=== PATIENT | female | born 1955 | race African-American/Black ===

== ENCOUNTER 2023-07-02 06:55 | Inpatient (IN) | payer OTHER ==
[~2023-07-02] VITALS: Ht 162.6 cm; Wt 64.9 kg
[2023-07-02] VITALS (25 sets, daily range): BP systolic 79–125; BP diastolic 52–84; PULSE 73–89; RESP 9–23; TEMP 98.1–98.3
[2023-07-02 07:48] LABS: HEMATOCRIT. 31.1 % (36.0-48.0); HEMOGLOBIN. 10.2 g/dL (12.0-16.0); MEAN CORPUSCULAR HEMOGLOBIN 30.6 pg (28.0-32.0); MEAN CORPUSCULAR HGB CONC 32.8 g/dL (31.0-37.0); MEAN CORPUSCULAR VOLUME 93.2 fL (81.0-99.0); PLATELET 236 x1000/uL (130-400); RED BLOOD CELL COUNT 3.34 mill/uL (4.2-5.4); RED CELL DISTRIBUTION WIDTH 14.7 % (11.6-14.6); WHITE BLOOD COUNT 10.6 x1000/uL (4.5-11.0)
[2023-07-02 07:49] LABS: DIFFERENTIAL COMMENT 1
[2023-07-02] MEDS: ASPIRIN 325MG EC TABLET PO ONE (07:50)
[2023-07-02 08:21] LABS: AMMONIA 26 uMol/L (<32)
[2023-07-02 08:29] LABS: CHLORIDE 103 mEq/L (98-107); POTASSIUM 3.9 mEq/L (3.5-5.1); SODIUM 132 mEq/L (136-145)
[2023-07-02 08:30] LABS: CARBON DIOXIDE 20 mEq/L (21-32)
[2023-07-02 08:31] LABS: CALCIUM 8.1 mg/dL (8.7-10.4)
[2023-07-02 08:35] LABS: CREATININE 2.3 mg/dL (0.6-1.0); GLUCOSE 96 mg/dL (70-105)
[2023-07-02 08:36] LABS: ETHANOL BLOOD < 10 mg/dL (<10); UREA NITROGEN BLOOD 42 mg/dL (9-23)
[2023-07-02 08:53] LABS: INR 0.9; PROTHROMBIN TIME 10.4 sec (9.6-11.0)
[2023-07-02] MEDS: SODIUM CHLORIDE 0.9% 1000ML BAG (SEPSIS BOLUS) IV ONE (09:06)
[2023-07-02] MEDS: PIPERACILLIN/TAZO 3.375G/50ML 50 ML IV ONE (09:40)
[2023-07-02 11:07] LABS: ALANINE AMINOTRANSFERASE 15 IU/L (10-49); ASPARTATE AMINOTRANSFERASE 37 IU/L (<34)
[2023-07-02 11:08] LABS: ALBUMIN 3.4 g/dL (3.2-4.8); BILIRUBIN DIRECT < 0.1 mg/dL (<=3.0); BILIRUBIN TOTAL 0.2 mg/dL (0.1-1.0); PROTEIN TOTAL 6.4 g/dL (6.0-8.3)
[2023-07-02 11:53] LABS: PLATELET ESTIMATE NORMAL
[2023-07-02 12:15] LABS: CLARITY URINE TURBID (CLEAR); COLOR URINE ORANGE (YELLOW); GLUCOSE URINE NEGATIVE (NEGATIVE); KETONES URINE NEGATIVE (NEGATIVE); LEUKOCYTE ESTERASE URINE 3+ (NEGATIVE); NITRITE URINE POSITIVE (NEGATIVE); OCCULT BLOOD URINE 3+ (NEGATIVE); PH URINE 8.5 (4.5-8.0); PROTEIN URINE 2+ (NEGATIVE); SPECIFIC GRAVITY URINE 1.026 (1.005-1.030); UROBILINOGEN URINE 0.2 E.U./dL (0.2-1.0)
[2023-07-02] MEDS ORDERED: VANCOMYCIN 1G PREMIX 200 ML IV NR (12:15)
[2023-07-02 12:34] LABS: SQUAMOUS EPITHELIAL CELL URINE FEW /lpf (RARE/1+)
[2023-07-02 12:35] LABS: BACTERIA URINE 4+; RBC URINE 50-100 /hpf (0-2); WBC URINE TNTC /hpf (0-2)
[2023-07-02] MEDS ORDERED: GUAIFENESIN 200MG/10ML SUGAR FREE UDC PO PRN (13:15)
[2023-07-02] MEDS ORDERED: ONDANSETRON HCL 4MG/2ML INJ IV PRN (13:15)
[2023-07-02] MEDS ORDERED: ACETAMINOPHEN 325MG TABLET PO PRN (13:15)
[2023-07-02] MEDS ORDERED: PIPERACILLIN/TAZOBACTAM 3.375 G in DEXTROSE 5% WATER 50 ML IV SCH (13:15)
[2023-07-02] MEDS: NOREPINEPHRINE 8MG/250ML PMX 250 ML IV ONE (13:50)
[2023-07-02] MEDS: SODIUM CHLORIDE 0.9% 500 ML IV ONE (13:51)
[2023-07-02] MEDS: SODIUM CHLORIDE 0.9% 1,000 ML IV SCH (13:51)
[2023-07-02] MEDS: VANCOMYCIN 1.25GM PMX (XELLIA) 250 ML IV NR (15:00)
[2023-07-02] MEDS: ENOXAPARIN 30MG/0.3ML SYR SUBCUT SCH (15:15)
[2023-07-02] MEDS ORDERED: HYDRALAZINE HCL 25MG TABLET PO PRN (19:30)
[2023-07-02] MEDS: ASPIRIN 81MG EC TABLET PO SCH (19:30)
[2023-07-02] MEDS: CLOPIDOGREL 75MG TABLET PO SCH (19:30)
[2023-07-02] MEDS: PIPERACILLIN/TAZO 3.375G/50ML IV SCH (20:25)
[2023-07-02] MEDS: ATORVASTATIN CALCIUM 40MG TABLET PO SCH (20:26)
[2023-07-02] MEDS: TRAMADOL 50MG TABLET PO PRN (20:43)
[2023-07-02 23:04] LABS: HEPATITIS B SURFACE ANTIGEN NEGATIVE (Negative)
[2023-07-02 23:25] LABS: HEPATITIS C AB NON REACTIVE (Neg) (Negative)
[2023-07-03] VITALS (47 sets, daily range): BP systolic 47–145; BP diastolic 26–110; PULSE 69–90; RESP 10–24; TEMP 98–98.6
[2023-07-03 04:48] LABS: BASOPHILS % 0.4 % (0.0-2.0); EOSINOPHILS % 2.1 % (0.0-5.0); HEMATOCRIT. 27.4 % (36.0-48.0); HEMOGLOBIN. 9.3 g/dL (12.0-16.0); LYMPHOCYTES % 14.5 % (20.0-50.0); MEAN CORPUSCULAR HEMOGLOBIN 31.4 pg (28.0-32.0); MEAN CORPUSCULAR HGB CONC 33.8 g/dL (31.0-37.0); MEAN CORPUSCULAR VOLUME 92.9 fL (81.0-99.0); MEAN PLATELET VOLUME 7.1 fl (7.4-10.4); MONOCYTES % 9.2 % (2.0-8.0); NEUTROPHILS % 73.8 % (40.0-76.0); PLATELET 217 x1000/uL (130-400); RED BLOOD CELL COUNT 2.95 mill/uL (4.2-5.4); RED CELL DISTRIBUTION WIDTH 14.6 % (11.6-14.6)
[2023-07-03 05:04] LABS: TRIGLYCERIDE 209 mg/dL (0-150)
[2023-07-03 05:05] LABS: LDL CHOLESTEROL 40 mg/dL (5-100)
[2023-07-03 05:06] LABS: CHOLESTEROL 124 mg/dL (<200); HDL CHOLESTEROL < 20 mg/dL (>65)
[2023-07-03] MEDS ORDERED: NALOXONE HCL 0.4MG/ML VIAL IV PRN (11:00)
[2023-07-03] MEDS: ENOXAPARIN 40MG/0.4ML SYR SUBCUT SCH (11:24)
[2023-07-03 12:33] LABS: POTASSIUM 3.3 mEq/L (3.5-5.1)
[2023-07-03 12:34] LABS: CALCIUM 7.5 mg/dL (8.7-10.4)
[2023-07-03 12:41] LABS: CREATININE 1.5 mg/dL (0.6-1.0)
[2023-07-03] MEDS: PIPERACILLIN/TAZO 3.375G/50ML IV SCH (15:11)
[2023-07-03] MEDS: VANCOMYCIN 750MG/150ML IV NR (17:09)
[2023-07-04] VITALS: BP 143/82; PULSE 85; RESP 18; TEMP 97.9
[2023-07-04 04:00] VITALS: BP 155/89; PULSE 75; RESP 18; TEMP 98.1
[2023-07-04 07:52] LABS: CHLORIDE 112 mEq/L (98-107); SODIUM 141 mEq/L (136-145)
[2023-07-04 07:53] LABS: CALCIUM 8.4 mg/dL (8.7-10.4); CARBON DIOXIDE 18 mEq/L (21-32)
[2023-07-04 07:58] LABS: CREATININE 1.1 mg/dL (0.6-1.0)
[2023-07-04 07:59] LABS: GLUCOSE 87 mg/dL (70-105); UREA NITROGEN BLOOD 18 mg/dL (9-23)
[2023-07-04 08:00] VITALS: BP 162/94; PULSE 67; RESP 18; TEMP 98.8
[2023-07-04] MEDS: POTASSIUM CHLORIDE 20MEQ TABLET SR PO NR (09:44)
[2023-07-04] MEDS: CLONIDINE 0.1MG TABLET PO PRN (09:48)
[2023-07-04] MEDS: VANCOMYCIN 1.5GM/250ML IV SCH (11:49)
[2023-07-04 12:00] VITALS: BP 169/87; PULSE 66; RESP 18; TEMP 98.1
[2023-07-04 16:00] VITALS: BP 164/82; PULSE 62; RESP 18; TEMP 98.7
[2023-07-04 20:00] VITALS: BP 161/81; PULSE 73; RESP 22; TEMP 98.1
[2023-07-05] VITALS: BP 160/83; PULSE 73; RESP 18; TEMP 98.6
[2023-07-05 04:00] VITALS: BP 162/90; PULSE 56; RESP 17; TEMP 97.9
[2023-07-05 07:27] LABS: CARBON DIOXIDE 19 mEq/L (21-32); CHLORIDE 112 mEq/L (98-107); POTASSIUM 3.6 mEq/L (3.5-5.1); SODIUM 140 mEq/L (136-145)
[2023-07-05 07:29] LABS: CALCIUM 8.5 mg/dL (8.7-10.4)
[2023-07-05 07:32] LABS: CREATININE 1.1 mg/dL (0.6-1.0)
[2023-07-05 07:33] LABS: GLUCOSE 97 mg/dL (70-105); UREA NITROGEN BLOOD 12 mg/dL (9-23)
[2023-07-05 08:00] VITALS: BP 118/79; PULSE 60; RESP 20; TEMP 98.1
[2023-07-05 12:00] VITALS: BP 120/86; PULSE 79; RESP 18; TEMP 98.9
[2023-07-05 12:14] VITALS: BP 120/86; PULSE 79; TEMP 98.9; O2SAT 96
== END 2023-07-05 14:10 | disposition home or self-care (01) | DRG 872 ==
LOC: ER 06:55 → EDBEDREQ 12:30 → MICUNO 13:22 → EDBEDREQSVC 13:27 → EDBEDREQTM 13:27 → ER 17:52 → 7WST 07-03 15:15
PROVIDERS: ADMIT Hospitalist; ATTEND Hospitalist
DX: A41.9 Sepsis, unspecified organism (principal); E87.1 Hypo-osmolality and hyponatremia; N17.9 Acute kidney failure, unspecified; N39.0 Urinary tract infection, site not specified; F17.200 Nicotine dependence, unspecified, uncomplicated; D64.9 Anemia, unspecified; I10 Essential (primary) hypertension
CPT/HCPCS: 36415; 70496; 70498; 70551; 71045; 72141; 80048; 80061; 80076; 80202; 80320; 81003; 82140; 82962; 83036; 83605; 83735; 84145; 84443; 85025; 86705; 87340; 93005; 93306; 93970; 97162; 97166; 97530; 97535; 99291; J1650; J2543; J3370; J3490; J7030; J7040; G0480

== ENCOUNTER 2024-01-25 08:34 | Inpatient (IN) | payer OTHER ==
[~2024-01-25] VITALS: Ht 167.6 cm; Wt 77.6 kg
[2024-01-25 09:27] LABS: DIFFERENTIAL COMMENT 1; HEMATOCRIT. 30.3 % (36.0-48.0); HEMOGLOBIN. 9.9 g/dL (12.0-16.0); MEAN CORPUSCULAR HEMOGLOBIN 31.2 pg (28.0-32.0); MEAN CORPUSCULAR HGB CONC 32.7 g/dL (31.0-37.0); MEAN CORPUSCULAR VOLUME 95.3 fL (81.0-99.0); MEAN PLATELET VOLUME 6.8 fl (7.4-10.4); PLATELET 309 x1000/uL (130-400); RED BLOOD CELL COUNT 3.18 mill/uL (4.2-5.4); RED CELL DISTRIBUTION WIDTH 14.3 % (11.6-14.6); WHITE BLOOD COUNT 10.4 x1000/uL (4.5-11.0)
[2024-01-25] MEDS: IOHEXOL-350 100 ML BOTTLE ONE (09:28)
[2024-01-25 09:33] LABS: CHLORIDE 105 mEq/L (98-107); POTASSIUM 3.4 mEq/L (3.5-5.1); SODIUM 134 mEq/L (136-145)
[2024-01-25 09:34] LABS: CARBON DIOXIDE 19 mEq/L (21-32)
[2024-01-25 09:37] LABS: PROTHROMBIN TIME 11.3 sec (9.6-11.0)
[2024-01-25 09:39] LABS: GLUCOSE 94 mg/dL (70-105); TROPONIN I HIGH SENSITIVITY 4 ng/L (3.0-34); UREA NITROGEN BLOOD 21 mg/dL (9-23)
[2024-01-25 09:41] LABS: ALANINE AMINOTRANSFERASE < 7 IU/L (10-49); ALBUMIN 3.2 g/dL (3.2-4.8); ASPARTATE AMINOTRANSFERASE 11 IU/L (<34); BILIRUBIN DIRECT 0.1 mg/dL (<=3.0); BILIRUBIN TOTAL 0.4 mg/dL (0.1-1.0); PROTEIN TOTAL 6.2 g/dL (6.0-8.3)
[2024-01-25] MEDS ORDERED: LACTATED RINGERS 1,000 ML IV SCH (09:45)
[2024-01-25] MEDS: ASPIRIN 81MG TABLET PO ONE (09:46)
[2024-01-25] MEDS: CLOPIDOGREL 75MG TABLET PO ONE (09:47)
[2024-01-25 09:55] LABS: CREATININE 1.9 mg/dL (0.6-1.0)
[2024-01-25 10:02] LABS: PLATELET ESTIMATE NORMAL
[2024-01-25] MEDS ORDERED: ACETAMINOPHEN 325MG TABLET PO PRN (10:45)
[2024-01-25] MEDS ORDERED: IPRATROPIUM/ALBUTEROL 0.5-3(2.5)MG/3ML NEB HHN PRN (10:45)
[2024-01-25] MEDS ORDERED: ONDANSETRON HCL 4MG/2ML INJ IV PRN (10:45)
[2024-01-25] MEDS ORDERED: CLONIDINE 0.1MG TABLET PO PRN (10:45)
[2024-01-25] MEDS: SODIUM CHLORIDE 0.9% 1,000 ML IV SCH (10:53)
[2024-01-25] MEDS: POTASSIUM CHLORIDE 20MEQ TABLET SR PO NR (11:30)
[2024-01-25] MEDS: PANTOPRAZOLE 40MG DR TABLET PO SCH (12:00)
[2024-01-25] MEDS: VANCOMYCIN 1.25GM PMX (XELLIA) 250 ML IV NR (12:00)
[2024-01-25 12:11] LABS: CLARITY URINE CLOUDY (CLEAR); COLOR URINE YELLOW (YELLOW); GLUCOSE URINE NEGATIVE (NEGATIVE); KETONES URINE NEGATIVE (NEGATIVE); NITRITE URINE POSITIVE (NEGATIVE); OCCULT BLOOD URINE 3+ (NEGATIVE); PROTEIN URINE TRACE (NEGATIVE); UROBILINOGEN URINE 0.2 E.U./dL (0.2-1.0)
[2024-01-25 12:12] LABS: LEUKOCYTE ESTERASE URINE 2+ (NEGATIVE)
[2024-01-25 12:14] LABS: BACTERIA URINE 4+; RBC URINE TNTC /hpf (0-2); SQUAMOUS EPITHELIAL CELL URINE 2+ /lpf (RARE/1+); WBC URINE TNTC /hpf (0-2); YEAST URINE NONE SEEN
[2024-01-25 12:34] LABS: IRON 10 ug/dL (50-170)
[2024-01-25 12:36] LABS: LACTIC ACID 2.6 mmol/L (0.4-2.0); TOTAL IRON BINDING CAPACITY 447 ug/dl (250-425); TROPONIN I HIGH SENSITIVITY 5 ng/L (3.0-34)
[2024-01-25 12:40] LABS: FERRITIN 154 ng/mL (10-291); FOLIC ACID (FOLATE) SERUM 5.63 ng/mL (>5.38); VITAMIN B12 SERUM 1020 pg/mL (211-911)
[2024-01-25 12:46] LABS: *AMPHETAMINES SCREEN URINE NEGATIVE (NEGATIVE); *BENZODIAZEPINES SCREEN URINE NEGATIVE (NEGATIVE)
[2024-01-25 12:47] LABS: *BARBITURATES SCREEN URINE NEGATIVE (NEGATIVE); *COCAINE SCREEN URINE NEGATIVE (NEGATIVE); CANNABINOID URINE SCREEN NEGATIVE (NEGATIVE); ECSTASY MDMA SCREEN URINE NEGATIVE (NEGATIVE); METHADONE URINE SCREEN NEGATIVE (NEGATIVE); OPIATES URINE SCREEN PRESUMPTIVE POSITIVE (NEGATIVE); PHENCYCLIDINE URINE SCREEN NEGATIVE (NEGATIVE)
[2024-01-25] MEDS ORDERED: PIPERACILLIN/TAZO 3.375G/50ML 50 ML IV SCH ×2 (14:00)
[2024-01-25 16:00] VITALS: BP 93/56; PULSE 116; RESP 29; TEMP 38.0586; O2SAT 94
[2024-01-25] MEDS: CLOPIDOGREL 75MG TABLET PO NR (16:00)
[2024-01-25 16:30] VITALS: BP 95/70; PULSE 115; RESP 33; TEMP 38.086
[2024-01-25 19:03] LABS: HEPATITIS B SURFACE ANTIGEN NEGATIVE (Negative)
[2024-01-25 19:25] LABS: HEPATITIS C AB NON REACTIVE (Neg) (Negative)
[2024-01-25] MEDS: PIPERACILLIN/TAZO 3.375G/50ML 50 ML IV SCH (19:32)
[2024-01-25 20:00] VITALS: BP 71/49; PULSE 108; RESP 22; TEMP 37.44744; O2SAT 94
[2024-01-25] MEDS: ATORVASTATIN CALCIUM 40MG TABLET PO SCH (20:17)
[2024-01-25] MEDS: SODIUM CHLORIDE 0.9% 1,000 ML IV NR (22:59)
[2024-01-26] VITALS: BP 66/57; PULSE 100; RESP 21; TEMP 37.503; O2SAT 93
[2024-01-26] MEDS: ACETAMINOPHEN 325MG TABLET PO PRN (01:40)
[2024-01-26 04:00] VITALS: BP 73/54; PULSE 97; RESP 18; TEMP 37.05852; O2SAT 95
[2024-01-26] MEDS: MIDODRINE HCL 5MG TABLET PO NR (04:41)
[2024-01-26] MEDS: PIPERACILLIN/TAZO 3.375G/50ML 50 ML IV SCH (06:02)
[2024-01-26 07:15] LABS: CARBON DIOXIDE 13 mEq/L (21-32); CHLORIDE 108 mEq/L (98-107); POTASSIUM 4.7 mEq/L (3.5-5.1); SODIUM 136 mEq/L (136-145)
[2024-01-26 07:16] LABS: CALCIUM 7.3 mg/dL (8.7-10.4)
[2024-01-26 07:21] LABS: GLUCOSE 54 mg/dL (70-105); T4 FREE 0.95 ng/dL (0.89-1.76); TRIGLYCERIDE 192 mg/dL (0-150)
[2024-01-26 07:22] LABS: CHOLESTEROL 73 mg/dL (<200); LDL CHOLESTEROL 18 mg/dL (5-100); THYROID STIMULATING HORMONE 0.64 uIU/mL (0.55-4.78); UREA NITROGEN BLOOD 30 mg/dL (9-23)
[2024-01-26 07:23] LABS: HDL CHOLESTEROL < 20 mg/dL (>65)
[2024-01-26 08:00] VITALS: BP 82/62; PULSE 99; RESP 22; TEMP 37.11408; O2SAT 95
[2024-01-26] MEDS: ENOXAPARIN 30MG/0.3ML SYR SUBCUT SCH (08:48)
[2024-01-26] MEDS: ASPIRIN 81MG EC TABLET PO SCH (08:49)
[2024-01-26 11:24] LABS: CREATININE 2.8 mg/dL (0.6-1.0)
[2024-01-26 12:00] VITALS: BP 89/66; PULSE 98; RESP 23; TEMP 37.05852; O2SAT 96
[2024-01-26 12:39] LABS: HEMATOCRIT. 28.7 % (36.0-48.0); HEMOGLOBIN. 9.1 g/dL (12.0-16.0); MEAN CORPUSCULAR HEMOGLOBIN 30.8 pg (28.0-32.0); MEAN CORPUSCULAR HGB CONC 31.8 g/dL (31.0-37.0); MEAN CORPUSCULAR VOLUME 96.9 fL (81.0-99.0); MEAN PLATELET VOLUME 7.5 fl (7.4-10.4); PLATELET 123 x1000/uL (130-400); RED BLOOD CELL COUNT 2.96 mill/uL (4.2-5.4); RED CELL DISTRIBUTION WIDTH 14.7 % (11.6-14.6); WHITE BLOOD COUNT 10.7 x1000/uL (4.5-11.0)
[2024-01-26 12:46] LABS: DIFFERENTIAL COMMENT 1
[2024-01-26] MEDS: VANCOMYCIN 750MG PREMIX 150 ML IV SCH (15:52)
[2024-01-26 16:00] VITALS: BP 71/52; PULSE 99; RESP 20; TEMP 36.9474; O2SAT 94
[2024-01-26] MEDS: FERROUS SULFATE 325MG TABLET PO SCH (17:05)
[2024-01-26] MEDS: MIDODRINE HCL 5MG TABLET PO SCH (17:05)
[2024-01-26 17:55] LABS: PLATELET ESTIMATE NORMAL
[2024-01-26] MEDS ORDERED: SODIUM CHLORIDE 0.9% (SEPSIS BOLUS) IV ONE ×2 (18:55→19:00)
[2024-01-26] MEDS: SODIUM CHLORIDE 0.9% 500 ML IV NR (19:30)
[2024-01-26 20:00] VITALS: BP 81/60; PULSE 92; RESP 21; TEMP 36.72516; O2SAT 96
[2024-01-26] MEDS ORDERED: SODIUM CHLORIDE 0.9% 500 ML IV SCH (20:00)
[2024-01-27] VITALS: BP 80/68; PULSE 81; RESP 17; TEMP 36.89184; O2SAT 95
[2024-01-27 04:00] VITALS: BP 98/60; PULSE 106; RESP 20; TEMP 36.78072; O2SAT 82
[2024-01-27 07:18] LABS: HEMATOCRIT 27.6 % (36.0-48.0); HEMOGLOBIN 8.8 g/dL (12.0-16.0); MEAN CORPUSCULAR HEMOGLOBIN 30.8 pg (28.0-32.0); MEAN CORPUSCULAR HGB CONC 32.1 g/dL (31.0-37.0); PLATELET 70 x1000/uL (130-400); RED BLOOD CELL COUNT 2.87 mill/uL (4.2-5.4); RED CELL DISTRIBUTION WIDTH 14.5 % (11.6-14.6); WHITE BLOOD COUNT 11.9 x1000/uL (4.5-11.0)
[2024-01-27 07:23] LABS: POTASSIUM 3.7 mEq/L (3.5-5.1)
[2024-01-27 07:24] LABS: CALCIUM 7.1 mg/dL (8.7-10.4)
[2024-01-27 07:28] LABS: CREATININE 3.1 mg/dL (0.6-1.0)
[2024-01-27 08:00] VITALS: BP 89/59; PULSE 100; RESP 19; TEMP 36.6696; O2SAT 94
[2024-01-27] MEDS: DEXTROSE 50% WATER 50ML SYRINGE IV NR (08:44)
[2024-01-27] MEDS ORDERED: DEXTROSE 50% WATER 50ML SYRINGE IV PRN (08:45)
[2024-01-27] MEDS ORDERED: PIPERACILLIN/TAZO 3.375G/50ML 50 ML IV SCH (09:00)
[2024-01-27] MEDS: MIDODRINE HCL 5MG TABLET PO SCH (09:08)
[2024-01-27] MEDS ORDERED: CEFEPIME 1GM IN DEXT 5% 50ML IV SCH (09:15)
[2024-01-27] MEDS: DEXT 5%/LACTATED RINGERS 1,000 ML IV SCH (09:17)
[2024-01-27] MEDS ORDERED: CEFEPIME 1GM/50ML 50 ML IV SCH (10:00)
[2024-01-27] MEDS: BLOOD SUGAR DIAGNOSTIC STRIP TEST SCH (11:50)
[2024-01-27 12:00] VITALS: BP 89/65; PULSE 96; RESP 22; TEMP 36.9474; O2SAT 94
[2024-01-27] MEDS ORDERED: VANCOMYCIN 1GM/200ML PMX (BAXTER) IV SCH (12:00)
[2024-01-27 16:00] VITALS: BP 95/71; PULSE 92; RESP 22; TEMP 36.9474; O2SAT 95
[2024-01-27] MEDS: CEFTRIAXONE 2GM/50ML 50 ML IV SCH (17:43)
[2024-01-27 20:00] VITALS: BP 107/74; PULSE 85; RESP 18; TEMP 36.6696; O2SAT 98
[2024-01-27] MEDS: FAMOTIDINE 20MG TABLET PO SCH (21:25)
[2024-01-28] VITALS (7 sets, daily range): BP systolic 100–141; BP diastolic 74–95; PULSE 81–95; RESP 16–26; TEMP 36.50292–36.78072; O2SAT 91–97
[2024-01-28 12:18] LABS: HEMATOCRIT 29.8 % (36.0-48.0); HEMOGLOBIN 9.7 g/dL (12.0-16.0); MEAN CORPUSCULAR HEMOGLOBIN 30.3 pg (28.0-32.0); MEAN CORPUSCULAR HGB CONC 32.3 g/dL (31.0-37.0); MEAN CORPUSCULAR VOLUME 93.8 fL (81.0-99.0); RED BLOOD CELL COUNT 3.18 mill/uL (4.2-5.4); RED CELL DISTRIBUTION WIDTH 14.6 % (11.6-14.6); WHITE BLOOD COUNT 15.6 x1000/uL (4.5-11.0)
[2024-01-28 12:30] LABS: POTASSIUM 4.2 mEq/L (3.5-5.1)
[2024-01-28 12:31] LABS: CALCIUM 8.1 mg/dL (8.7-10.4); PLATELET 33 x1000/uL (130-400)
[2024-01-28 12:36] LABS: CREATININE 2.4 mg/dL (0.6-1.0)
[2024-01-28] MEDS: SODIUM CHLORIDE 0.45% 1,000 ML IV SCH (16:18)
[2024-01-29] VITALS: BP 133/91; PULSE 98; RESP 23; TEMP 36.55848; O2SAT 95
[2024-01-29 04:00] VITALS: BP 134/87; PULSE 90; RESP 23; TEMP 36.78072; O2SAT 96
[2024-01-29 07:32] LABS: POTASSIUM 3.2 mEq/L (3.5-5.1)
[2024-01-29 07:33] LABS: CALCIUM 7.3 mg/dL (8.7-10.4); HEMATOCRIT 25.1 % (36.0-48.0); HEMOGLOBIN 8.4 g/dL (12.0-16.0); MEAN CORPUSCULAR HEMOGLOBIN 31.5 pg (28.0-32.0); MEAN CORPUSCULAR HGB CONC 33.4 g/dL (31.0-37.0); MEAN CORPUSCULAR VOLUME 94.1 fL (81.0-99.0); RED BLOOD CELL COUNT 2.66 mill/uL (4.2-5.4); RED CELL DISTRIBUTION WIDTH 14.8 % (11.6-14.6); WHITE BLOOD COUNT 10.9 x1000/uL (4.5-11.0)
[2024-01-29 07:38] LABS: CREATININE 1.9 mg/dL (0.6-1.0)
[2024-01-29 08:00] VITALS: BP 135/99; PULSE 90; RESP 21; TEMP 36.6696; O2SAT 98
[2024-01-29 08:49] LABS: PLATELET 25 x1000/uL (130-400)
[2024-01-29] MEDS: POTASSIUM CHLORIDE 20MEQ TABLET SR PO NR (09:05)
[2024-01-29] MEDS ORDERED: CEFEPIME 1GM IN DEXT 5% 50ML IV SCH (11:15)
[2024-01-29 12:00] VITALS: BP 136/96; PULSE 97; RESP 18; TEMP 36.61404; O2SAT 97
[2024-01-29] MEDS ORDERED: CEFEPIME 2GM/50ML DUPLEX 50 ML IV SCH (12:30)
[2024-01-29] MEDS: CEFEPIME 1GM/50ML 50 ML IV SCH (13:55)
[2024-01-29 16:00] VITALS: BP 141/93; PULSE 103; RESP 19; TEMP 36.50292; O2SAT 99
[2024-01-29 20:00] VITALS: BP 137/93; PULSE 100; RESP 22; TEMP 37.00296; O2SAT 96
[2024-01-29] MEDS ORDERED: CEFEPIME 1GM/50ML 50 ML IV SCH (21:00)
[2024-01-30] VITALS: BP 133/95; PULSE 92; RESP 25; TEMP 36.6696; O2SAT 98
[2024-01-30 04:00] VITALS: BP 128/95; PULSE 93; RESP 20; TEMP 36.61404; O2SAT 96
[2024-01-30 07:09] LABS: POTASSIUM 3.7 mEq/L (3.5-5.1)
[2024-01-30 07:14] LABS: HEMATOCRIT 27.8 % (36.0-48.0); HEMOGLOBIN 8.9 g/dL (12.0-16.0); MEAN CORPUSCULAR HEMOGLOBIN 30.5 pg (28.0-32.0); MEAN CORPUSCULAR HGB CONC 32.1 g/dL (31.0-37.0); MEAN CORPUSCULAR VOLUME 95.2 fL (81.0-99.0); RED BLOOD CELL COUNT 2.92 mill/uL (4.2-5.4); WHITE BLOOD COUNT 12.9 x1000/uL (4.5-11.0)
[2024-01-30 07:15] LABS: CREATININE 1.9 mg/dL (0.6-1.0)
[2024-01-30 08:00] VITALS: BP 134/93; PULSE 94; RESP 24; TEMP 36.50292; O2SAT 96
[2024-01-30] MEDS ORDERED: CEFP100T8 MT (11:37)
[2024-01-30 12:00] VITALS: BP 126/85; PULSE 99; RESP 20; TEMP 36.61404; O2SAT 96
[2024-01-30 13:50] LABS: PLATELET 49 x1000/uL (130-400)
[2024-01-30 15:26] VITALS: BP 126/85; PULSE 100; TEMP 97.7; O2SAT 100
== END 2024-01-30 16:07 | disposition home health service (06) | DRG 871 ==
LOC: ER 08:34 → 3WST 09:42 → EDBEDREQ 09:49
PROVIDERS: ADMIT Hospitalist; ATTEND Hospitalist
DX: A41.9 Sepsis, unspecified organism (principal); R65.21 Severe sepsis with septic shock; G45.9 Transient cerebral ischemic attack, unspecified; N17.9 Acute kidney failure, unspecified; N39.0 Urinary tract infection, site not specified; N18.9 Chronic kidney disease, unspecified; E87.6 Hypokalemia; B96.20 Unspecified Escherichia coli [E. coli] as the cause of diseases classified elsewhere; I12.9 Hypertensive chronic kidney disease with stage 1 through stage 4 chronic kidney disease, or unspecified chronic kidney disease; D69.6 Thrombocytopenia, unspecified; D50.9 Iron deficiency anemia, unspecified; D63.8 Anemia in other chronic diseases classified elsewhere; F17.210 Nicotine dependence, cigarettes, uncomplicated; Z79.02 Long term (current) use of antithrombotics/antiplatelets
CPT/HCPCS: 36415; 70496; 70498; 70551; 71045; 80048; 80061; 80076; 80202; 80305; 81003; 82607; 82728; 82746; 82962; 83540; 83550; 83605; 84145; 84439; 84443; 84484; 85025; 85027; 86705; 87077; 87186; 87340; 93005; 93306; 93970; 95816; 97162; 97166; 97535; 99291; J0692; J0696; J1650; J2543; J3370; J7121; Q9967